=== PATIENT | female | born 1965 | race Hispanic/Latino ===

== ENCOUNTER 2023-11-22 19:15 | Emergency (ER) | payer MEDICAID, SELFPAY ==
[2023-11-22 19:16] VITALS: BP 109/79; PULSE 61; RESP 18; TEMP 36.9; O2SAT 100; BMI 43.0
--- NOTE | 2023-11-22 19:29 | EKG12_ITS ---
Test Reason : DYSRHYTHMIA Blood Pressure : / mmHG Vent. Rate : 058 BPM Atrial Rate : 058 BPM P-R Int : 198 ms QRS Dur : 088 ms QT Int : 422 ms P-R-T Axes : 004 -27 007 degrees QTc Int : 414 ms Sinus bradycardia Otherwise normal ECG Confirmed by MICAH PENNINGTON, CESAR ([id number]), photograph editor DC CARBONE ([id number]) on 11/23/2023 2:46:07 PM Referred By: ELDER Confirmed By:CESAR OBRIEN MD
--- NOTE | 2023-11-22 19:29 | EX.ED.DYSGE1 ---
HPI History of Present Illness Chief Complaint: Syncope Informant: patient Onset/Context/Timing Onset: Today Context: Sudden Onset Timing: Continuous Current Severity: Mild Maximum Severity: Moderate Narrative Narrative: 58-year-old female history of lupus, hypertension and fibromyalgia. Was actually visiting another patient today in emergency department when she had a syncopal episode. Said it came on suddenly she felt dizzy and nauseated. [place] warm all over and then per the nurses she had a syncopal event and was out for a short period of time and unresponsive. She has no known cardiac history. She was told before this may be vasovagal. She denies any recent illness. No headache, chest pain, shortness of breath or abdominal pain. No recent vomiting or diarrhea. Prior similar symptoms: Yes Recent Illness/Hospitalization: No PFSH PFSH Medical History Hypertension Fibromyalgia Home Medications ?Medication ?Instructions ?Recorded ?Last Taken ?Type ergocalciferol (vitamin D2) 1,250 1,250 mcg PO QWEEK 11/22/23 Unknown History mcg (50,000 unit) capsule ibuprofen 800 mg tablet 800 mg PO TID PRN PRN pain 11/22/23 Unknown History losartan 50 mg-hydrochlorothiazide 1 tab PO DAILY 11/22/23 Unknown History 12.5 mg tablet Allergy/AdvReac Type Severity Reaction Status Date / Time tramadol Allergy Intermediate Itching Verified 11/22/23 19:20 Social History Smoking Status: Never smoker ROS ROS ED ROS Narrative No recent illness. Constitutional Constitutional ED: Denies chills or fever(s) Eyes Eyes: Denies blurry vision ENT ENT ED: Denies ear pain Cardiovascular Cardiovascular: Denies chest pain Respiratory/Chest Respiratory/Chest: Denies cough or dyspnea Gastrointestinal Gastrointestinal: Denies abdominal pain, diarrhea, nausea or vomiting Genitourinary Genitourinary ED: Denies dysuria or hematuria Musculoskeletal Musculoskeletal: Denies arthralgias Integumentary Denies abscess Neurologic Neurologic: Denies headache(s) Psychiatric Psychiatric: Denies anxiety or depression Endocrine Endocrinology: Denies cold intolerance Hematologic/Lymphatic Hematologic/Lymphatic: Reports none Allergic/Immunologic Allergic/Immunologic ED: Denies mouth swelling, tongue swelling or urticaria EXAM Physical Exam Narrative Exam Narrative: For 7 female sitting upright in bed. Vital signs stable afebrile. Pulse ox on percent on room air no signs of pox. H EENT exam unremarkable. Pupils round react light. No droop. No trauma. Neck nontender. Lungs are to auscultation bilaterally. Heart regular rhythm no murmur. Chest wall ribs nontender. Abdomen soft nontender. Moving all 4 extremities. She is awake alert. No focal motor deficits. Answering questions following commands. Normal speech. NIH 0. Const Vital Signs: 11/22/23 19:16 11/22/23 19:44 11/22/23 19:57 Temperature 98.5 F Temperature Source Oral Pulse Rate 61 Respiratory Rate 18 Respiratory Effort Normal Non-Labored Respiratory Pattern Normal Blood Pressure 109/79 Blood Pressure Mean 89 Pulse Ox 100 Oxygen Delivery Method Room Air Room Air 11/22/23 20:16 11/22/23 21:00 11/22/23 22:00 Temperature Temperature Source Pulse Rate 65 57 L 56 L Respiratory Rate 19 H 18 18 Respiratory Effort Respiratory Pattern Blood Pressure 133/81 H 122/74 H 126/78 H Blood Pressure Mean 98 90 94 Pulse Ox 100 99 99 Oxygen Delivery Method Room Air Room Air Room Air Positive well nourished and well developed; Negative for obese, cachectic, contractures or unkempt General Appearance ED: well developed and NAD; Negative for unkempt, cachectic, contractures, cyanotic, diaphoretic or pallor Nutritional Appearance: Negative for cachectic or obese HEENT Reports moist mucous membranes; Denies dry mucous membranes Negative for trauma or tenderness Mouth ED: No dry mucous membranes Mouth: No dry mucous membranes Eyes PERRL and EOMs intact bilaterally General Eye ED: Negative for pale conjunctiva or scleral icterus Neck no lymphadenopathy, supple and no JVD General: Negative for tenderness Lymph Lymphatic: Negative for other Chest Wall inspection of chest normal and palpation of chest normal Chest: Negative for other Resp normal respiratory effort and clear to auscultation bilaterally Effort and Inspection: Negative for retractions Auscultation: Negative for rales, rhonchi, wheezes or diminished lung sounds Cardio regular rate, regular rhythm, S1 normal heart sound, S2 normal heart sound and no murmurs Rhythm: Negative for abnormal rhythm GI normal to inspection, nondistended, normoactive bowel sounds, non-tender, non-distended and no masses Inspection: Negative for abdominal distention Auscultation: normoactive bowel sounds Palpation: soft; Negative for tender, guarding, splenomegaly, mass or rebound tenderness present Back/Spine General Back: Negative for CVA tenderness or other Cervical Spine: Negative for cervical spine tenderness Thoracic Spine / Upper Back: Negative for thoracic spinal tenderness or paraspinal muscle tenderness Lumbar Spine / Lower Back: Negative for lumbar spinal tenderness Extremity normal to inspection General Extremety ED: Negative for edema or tenderness General Extremity: Negative for edema Neuro oriented x3 and CN's II-XII intact bilaterally Sensorium / Orientation: alert; Negative for orientation impaired, lethargic or stuporous Motor Exam: strength 5/5 throughout; Negative for general weakness or strength abnormal Psych mental status grossly normal Appearance: Negative for unkempt Attitude: No agitated Mood & Affect: Negative for depressed or tearful Skin no rashes or lesions noted, no wounds and skin turgor normal General Skin Exam: elasticity normal; Negative for jaundice or pallor Lesions: No lesion noted Rashes: No rashes noted Trauma: Negative for abrasion Wounds: Negative for wounds noted MDM MDM MDM Narrative Medical decision making narrative: 58-year-old female with syncopal episode. Exam benign currently. This could be vasovagal it could have been a cardiac event such as a dysrhythmia. She has had no recent illness. She will undergo cardiac workup. Repeat exam at 10:42 PM patient doing well. Feels fine. Sitting upright in bed. We discussed syncope. She has had this happen at least 2 other times. She seen her primary care provider. She is asked to call them again tomorrow to get outpatient cardiac monitoring set up. I offered her admission and she and family did not want her to stay. They understand if she gets worse or passes out again she needs to return. We did discuss some significant abnormal cardiac rhythms that can cause this. Again she did not want to stay. History & Record Review Discussion w/independent historian: Patient Additional record(s) reviewed:: No prior records Lab Data Attestation: I reviewed the patient's lab results. Lab results narrative: CBC normal. White count 8. H&H 14 and 44. Platelets 266. Electrolytes show gap 7. BUN 23 creatinine 0.8. Glucose 173. Troponin is normal at 6. Chest x-ray unremarkable. Labs: Laboratory Results - last 24 hr 11/22/23 19:20 WBC 8.1 RBC 5.04 Hgb 14.2 Hct 44.7 MCV 88.7 MCH 28.2 MCHC 31.8 L RDW Std Deviation 39.3 RDW Coeff of Jaya 12.1 Plt Count 266 MPV 10.3 Immature Gran % (Auto) 0.100 Neut % (Auto) 51.2 Lymph % (Auto) 37.3 Cottle % (Auto) 8.5 Eos % (Auto) 2.4 Baso % (Auto) 0.5 Absolute Neuts (auto) 4.1 Absolute Lymphs (auto) 3.01 Nucleated RBC % 0 Sodium 138 Potassium 3.9 Chloride 109 H Carbon Dioxide 22.0 Anion Gap 7 BUN 23 H Creatinine 0.81 Estim Creat Clear Calc 84.68 Est GFR (MDRD) Af Amer 94 Est GFR (MDRD) Non-Af 77 BUN/Creatinine Ratio 28.4 H Glucose 173 H Calcium 9.6 Troponin I High Sens 6 POC Glucose 144 H Radiography Chest X-Ray - ED: 1 View, Read by ED Physician, Read by Radiologist, Normal, Heart, Lungs, Mediastinum, Bony Structures and No Acute Disease Diagnostic Testing: Clinical Impression(s) from Imaging Studies Chest X-Ray 11/22/23 19:35 IMPRESSION: No radiographic evidence of acute cardiopulmonary disease. Electronically Signed: Rah Nielson MD at 20:03 EDT Reading Location ID and State: [facility] / [place] , Service support , Chest x-ray, portable, single view interpreted by myself and radiologist shows no acute abnormality. Normal cardiac silhouette. Normal lung asif. Rhythm Strip Rhythm Strip: Sinus bradycardia Rate: 58 Ectopy: None EKG Initial EKG: Attestation: I personally reviewed and interpreted this EKG as follows: Interpretation: No Acute Injury Pattern and Sinus Bradycardia Comments: Sinus bradycardia rate of 58. No acute signs of NM or ischemia. Prior: No Prior Discharge Plan Triage Chief Complaint: Syncope ED Provider: Jeremias Mckeon Dx/Rx/DC Orders Clinical Impression: Syncope Prescriptions: No Action ibuprofen 800 mg tablet 800 mg PO TID PRN PRN (Reason: pain) ergocalciferol (vitamin D2) 1,250 mcg (50,000 unit) capsule 1,250 mcg PO QWEEK losartan-hydrochlorothiazide 50-12.5 mg tablet 1 tab PO DAILY Primary Care Provider: Michelle Cadet NP Referrals: Michelle Cadet NP, [employer] M[employer] OPERATOR-C [Primary Care Provider] - 1 Day Activity Restrictions/Additional Instructions: Call and follow-up with your primary care provider tomorrow. They need to set you up with outpatient cardiac monitoring. Do not drive if you do not feel up to it. Return if feeling worse. Print Language: Spanish Disposition Disposition: Home, Self Care
--- NOTE | 2023-11-22 19:35 | RAD_ITS ---
EXAM: XR CHEST, 1 VIEW CLINICAL INDICATION: chest pain TECHNIQUE: Frontal view of the chest. COMPARISON: No relevant prior studies available. FINDINGS: LUNGS AND PLEURAL SPACES: Unremarkable. No consolidation or edema. No pneumothorax. No effusion. HEART: Unremarkable. Cardiac silhouette not enlarged. MEDIASTINUM: Central airways and mediastinal contour are unremarkable. BONES/JOINTS: Unremarkable. No acute fracture. SOFT TISSUES: Unremarkable. RAD/Chest 1 View (Portable) IMPRESSION: No radiographic evidence of acute cardiopulmonary disease. Electronically Signed: Rah Nielson MD at 20:03 EDT ,
[2023-11-22 19:38] LABS: Bedside Glucose 144 mg/dL (74-106)
[2023-11-22 19:59] LABS: Absolute Lymphocyte Count 3.01 X10^3/uL (0.83-4.51); Absolute Neutrophil Count 4.1 X10^3/uL (2.0-7.7); Basophil# 0.04 X10^3/uL; Basophil% 0.5 % (0-1); Eosinophil# 0.19 X10^3/uL; Eosinophils% 2.4 % (0-5); Hematocrit 44.7 % (37-47); Hemoglobin 14.2 g/dL (12.0-15.0); Lymphocyte # 3.01 X10^3/ul (0.83-4.51); Lymphocyte % 37.3 % (19-41); Mean Corp Hgb Conc 31.8 g/dL (32-36); Mean Corpuscular Hgb 28.2 pg (27.0-32.0); Mean Corpuscular Volume 88.7 fL (81-99); Mean Platelet Vol. 10.3 fl (6.2-12.0); Monocyte# 0.69 X10^3/uL; Monocyte% 8.5 % (0-10); NRBC Flagged by Analyzer 0 % (0-5); Neutrophil # 4.14 X10^3/uL (2.7-7.7); Neutrophil % 51.2 % (47-70); Platelet Count 266 K/mm3 (150-450); RBC Distribution Width CV 12.1 % (11.6-14.6); RBC Distribution Width SD 39.3 fl (35.1-43.9); Red Blood Count 5.04 M/mm3 (4.2-5.4); White Blood Count 8.1 K/mm3 (4.4-11.0)
[2023-11-22 20:11] LABS: Anion Gap 7 (5-15); BUN 23 mg/dL (7-18); BUN/Creat Ratio 28.4 RATIO (10-20); Calcium,Total 9.6 mg/dL (8.5-10.1); Chloride 109 mmol/L (98-107); Creatinine, Serum 0.81 mg/dL (0.55-1.02); EST Glomerular Filtration Rate 77 mL/min (>60); Est Glom Filt Rate - Afr Amer 94 mL/min (>60); Estimated Creatinine Clearance 84.68 ml/min; Glucose 173 mg/dL (74-106); Potassium 3.9 mmol/L (3.5-5.1); Sodium Level 138 mmol/L (136-145); Troponin-I HS 6 pg/mL (3.0-54.0)
[2023-11-22 20:16] VITALS: BP 133/81; PULSE 65; RESP 19; O2SAT 100
[2023-11-22 21:00] VITALS: BP 122/74; PULSE 57; RESP 18; O2SAT 99
[2023-11-22 22:00] VITALS: BP 126/78; PULSE 56; RESP 18; O2SAT 99
[2023-11-22 23:00] VITALS: BP 143/83; PULSE 60; RESP 12; TEMP 36.6; O2SAT 100
== END 2023-11-22 23:10 | disposition home or self-care (01) ==
PROVIDERS: Emergency Provider Emergency Medicine; PCP Nurse Practitioner Family; Visit Provider Emergency Medicine
DX: R55 Syncope and collapse (principal); I10 Essential (primary) hypertension; Z79.899 Other long term (current) drug therapy
CPT/HCPCS: 71045; 80048; 82962; 84484; 85025; 93005; 99283; J7030; A4216

== ENCOUNTER 2024-05-31 13:30 | Outpatient (RCR) | payer MEDICAID, SELFPAY ==
--- NOTE | 2024-04-25 13:34 | HP.PTEVAL ---
Patient's Visit Information Visit Information Visit Information: BETTIE RINALDI is a 58 year old F referred to Physical Therapy by AYESHA Perez with a diagnosis of FIBROMAYALGIA. Date of Evaluation: 04/25/24 Physical Therapist: Yung Corcoran, PT, Cert MDT, OCS Visit Plan Frequency: 2x /Week Duration: 4 Weeks Plan: PT INTERVENTIONS AQUATIC THERAPY ROM LUMBAR CERVICAL ,BUE/LE STRENGTHENING ,POSTURAL EX'S AND ENDURANCE EX'S Subjective Subjective: This 58 y/o female presents to physical therapy with fibromyalgia. Patient has had chronic pain 2009 and dx with lupus. Patient had more pain with general activity and walking. Pain in located global neck shoulders back and hip.Patient medication pain ibuprofen 800 mg. Aggravating factors weather and general activity walking/ standing .lifting bending. Alleviating factors heat. Patient ahd inaging of back Patient has difficulty sleeping . Patient has paresthesia /tingling feet. C/O BOOKER ,dizziness, denies nausea . Bowel/bladder -. Coughing/sneezing-. Patient had PT in past. Patient condition affects QOL and function/ADLS . Patient goals to decrease pain . Patient SOCIAL: VOCATION: unemployed Pain Bilateral Neck: Pain Intensity (Out of 10): 8 Pain Intensity Range: 10 Bilateral Back: Pain Intensity (Out of 10): 8 Pain Intensity Range: 10 Bilateral Hip: Pain Intensity (Out of 10): 9 Pain Intensity Range: 10 Comment: walking Objective Objective: POSTURE: mild forward posture NEURO: c/o paresthesia/tingling hands/feet ,reflexes C5-6-7 1/3 ,L3-4,L4-5,L5-S1 1/3 PALAPTION: tender UT/levators ,S/LS AROM: BUE WFL CERVICAL ROM: flexion min loss ,extension mod loss ,rotation/lateral flexion mod loiss MMT BUE: grossly 4-/5 MMT: quads/hams 4-/5 ,hip flexion 4-/5 ,ankle 4/5 LUMBAR ROM: flexion mod loss ,extension min loss ,side glides min loss FLEXABILITY: hamstrings min Special Tests C/S Radiculapathy - Left Upper limb tension test: Negative C/S Radiculapathy - Right Upper limb tension test: Negative C/S Radiculapathy - Left Spurlings: Negative C/S Radiculapathy - Right Spurlings: Negative C/S Radiculapathy - Left Cervical distraction: Negative C/S Radiculapathy - Right Cervical distraction: Negative C/S Radiculapathy - Left Relief test: Negative C/S Radiculapathy - Right Relief test: Negative Sharp Nelly: Negative Vertebral Artery Test: Negative Alar Ligament Test: Negative L/S Slump test left side: Negative L/S Slump test right side: Negative L/S Left Straight Leg Raise: Negative L/S Right Straight Leg Raise: Negative R Hip Scour: Negative R Hip Quadrant - Intraarticular Pathology: Negative L Hip Scour: Negative L Hip Quadrant - Intraarticular Pathology: Negative Balance/Special Test Scores Lower Extremity Functional Score: 24 Goals Goal 1:: Patient to be I with Aquatic therapy Goal Time Frame: 4-6 Weeks Goal 2:: Patient to improve cervical and lumbar ROM for function of recovery housework tasks Goal Time Frame: 4-6 Weeks Goal 3:: Patient to improve LFES score by 5 points to improve QOL and function Goal Time Frame: 4-6 Weeks Goal 4:: Patient to demonstrate decrease pain and improved function with ADLS and housework tasks Goal Time Frame: 4-6 Weeks Rehabilitation Potential Physical Therapy Diagnosis: Patient has had fibromyalgia chronic pain many years affects daily function and housework tasks along with comorbities influences condition thus benefit from skilled PT Rehabilitation Potential: Good Anticipated Interventions Patient/Client Instruction: Educate patient on: Condition and Plan of Care For the Purpose of:: To decrease pain, To improve nutrient delivery to tissue, To increase oxygenation perfusion, To improve muscle performance and motor function, To improve ability to perform ADL's, To increase tolerance to activity/condition/position, To improve ability of physical actions for home/community/work/leisure, To improve gait and locomotor functions, To improve health of tissue, To decrease soft tissue restriction and To increase flexibility/ROM Therapeutic Exercise to Include: Strength training, Endurance training, Balance training, Postural training, Flexibilty training, In an aquatic setting, Active ROM and Dynamic Lumbar Stabilization Comment: BUE/LE For the Purpose of:: To decrease pain, To increase ROM, To improve muscle performance and motor function, To improve ability to perform ADL's, To increase tolerance to activity/condition/position, To improve ability of physical actions for home/community/work/leisure, To improve gait and locomotor functions, To improve health of tissue, To decrease soft tissue restriction and To increase flexibility/ROM Text: Thank you for the opportunity to evaluate your patient. For Medicare and Medicare HMO plans, please review the plan of care and approve it. It will need to be FAXED BACK to us at [phone] for Medicare purposes. For Medicare only, by signing this I certify the plan of care. Please let me know if there are questions or concerns regarding this plan of care. Physician Signature: Date:
--- NOTE | 2024-05-31 14:02 | HP.PTDCSUM ---
Discharge Summary D/C summary: It has been my pleasure to treat BETTIE RINALDI referred by AYESHA Perez, with the diagnosis of FIBROMAYALGIA for a total of 8 visit(s). Discharge Date: 05/31/24 Please see the following information for a summary of their discharge status. Subjective Subjective: Patient seen RA DR kline prescribed medication no medication due to other issues with heart Patient condition is not better Plan to see electronic scale tester Pain Bilateral Neck: Pain Intensity (Out of 10): 7 Bilateral Back: Pain Intensity (Out of 10): 7 Bilateral Hip: Pain Intensity (Out of 10): 0 WHOLE BODY: Pain Intensity (Out of 10): 7 Overall Improvement % Improvement: 20 Objective Objective/Function: POSTURE: mild forward posture NEURO: c/o paresthesia/tingling hands/feet ,reflexes C5-6-7 1/3 ,L3-4,L4-5,L5-S1 1/3 PALAPTION: tender UT/levators ,S/LS AROM: BUE WFL CERVICAL ROM: flexion min loss ,extension mod loss ,rotation/lateral flexion mod loiss MMT BUE: grossly 4-/5 MMT: quads/hams 4-/5 ,hip flexion 4-/5 ,ankle 4/5 LUMBAR ROM: flexion mod loss ,extension min loss ,side glides min loss FLEXABILITY: hamstrings min Goals Goal 1:: Patient to be I with Aquatic therapy Goal Progress: Goal Met Goal 2:: Patient to improve cervical and lumbar ROM for function of recovery housework tasks Goal Progress: Not Progressing Goal 3:: Patient to improve LFES score by 5 points to improve QOL and function Goal Progress: Not Progressing Goal 4:: Patient to demonstrate decrease pain and improved function with ADLS and housework tasks Goal Progress: Not Progressing Plan Plan: RTD D/C Information Discharge Comments: RTD d/c sentence: If there are questions or concerns regarding this patient's physical therapy, please feel free to call me at [phone]. Thank you for the referral of this patient. Sincerely, Yung Corcoran, PT, Cert MDT, OCS Balance/Gait/Functional tests Balance/Special Test Scores Lower Extremity Functional Score: 24 Improvement % Improvement: 20
== END 2024-05-31 19:00 | disposition home or self-care (01) ==
LOC: PT 13:30
PROVIDERS: PCP Nurse Practitioner Family; Referring Provider Nurse Practitioner Family; Visit Provider Nurse Practitioner Family
DX: M79.7 Fibromyalgia (principal)
CPT/HCPCS: 97113; 97162; 97530

== ENCOUNTER 2024-12-25 14:57 | Emergency (ER) | payer SELFPAY ==
[2024-12-25 14:58] VITALS: BP 115/82; PULSE 86; RESP 16; TEMP 36.8; O2SAT 96; BMI 39.7
--- NOTE | 2024-12-25 16:18 | US_ITS ---
EXAM: US Pelvis Transvaginal CLINICAL INDICATION: PELVIC PAIN, POSTMENOPAUSAL BLEEDING LIMITED EXAM, TECHNIQUE: Real-time transvaginal pelvic ultrasound with image documentation. Transvaginal imaging was used for better evaluation of the endometrium and adnexa. COMPARISON: No relevant prior studies available. FINDINGS: UTERUS/CERVIX: Anteverted uterus. No myometrial mass. The uterus measures 9.8 x 5.6 x 4.4 cm. The endometrial stripe measures 1.8 cm in thickness. RIGHT OVARY: Right ovary not visualized. LEFT OVARY: Left ovary not visualized. FREE FLUID: No free fluid. BLADDER: Empty bladder which cannot be evaluated with this probe. US/Transvaginal Non- IMPRESSION: Thickened endometrium in a post menopausal woman. Further evaluation with gyne cology is recommended. Reading Location: [id number]
[2024-12-25 16:57] VITALS: BP 136/88; PULSE 78; O2SAT 100
[2024-12-25 18:00] VITALS: BP 125/82; PULSE 54; RESP 17; O2SAT 96
--- NOTE | 2024-12-25 18:55 | ED.VIS.FEGU ---
HPI HPI - Female History of Present Illness Chief Complaint: Vag Bleeding Detail of Chief Complaint: Post vaginal bleeding Pain Pain: Positive for Pelvic Pain Onset: Today Context: Sudden Onset Timing: Waxes and wanes Quality: Positive for Cramping and Aching Current Severity: Mild Maximum Severity: Mild Worsened by: - (Nothing) Relieved by: - (Nothing) Bleeding Issue: Positive for Vaginal bleeding and Passing clots; Negative for Passing tissue Onset: Today Context: Sudden Onset Timing: Continuous Current Severity: Mild Vaginal Discharge Onset: Weeks (Based on description probably physiologic) Quality: Positive for White and Thin Severity: Light Associated Symptoms Associated Symptoms: Negative for Dysuria, Frequency, Urgency or Hematuria Test: Positive Sexually: Positive for Inactive Narrative Narrative: Patient is a 59-year-old woman. She sees nurse practitioner Laura at the [facility]. She presents because of vaginal bleeding. She states she has not had a menses/vaginal bleed for 5 years. She denies weight gain or weight loss. She denies orthostatic symptoms. She is not on an anticoagulant or antithrombotic. She does have history of hypertension. There is a remote history of endometriosis. Denies history of ovarian cyst or fibroids. She denies history of ectopic . Prior similar symptoms: No Recent Illness/Hospitalization: No PFSH PFSH Medical History Hypertension Fibromyalgia Home Medications ?Medication ?Instructions ?Recorded ?Last Taken ?Type ibuprofen 800 mg tablet 800 mg PO TID PRN PRN pain 11/22/23 Unknown History losartan 50 mg-hydrochlorothiazide 1 tab PO DAILY 11/22/23 Unknown History 12.5 mg tablet Allergy/AdvReac Type Severity Reaction Status Date / Time tramadol Allergy Intermediate Itching Verified 12/25/24 15:00 Surgical History (Updated 12/25/24 @ 15:10 by Ellie Redmond) Hx of breast reduction, elective Hx of cholecystectomy H/O knee surgery H/O tubal ligation Social History household members: children Smoking Status: Never smoker ROS ROS ED Constitutional Constitutional ED: Denies chills, fever(s), subjective or sweats Cardiovascular Cardiovascular: Reports other Details: Denies orthostatic symptoms. ; Denies chest pain or palpitations Respiratory/Chest Respiratory/Chest: Denies dyspnea or dyspnea on exertion Gastrointestinal Gastrointestinal: Denies nausea or vomiting Genitourinary Genitourinary ED: Denies dysuria, hematuria or urinary frequency Hematologic/Lymphatic Hematologic/Lymphatic: Denies easy bleeding or easy bruising EXAM Physical Exam Const Vital Signs: 12/25/24 14:58 12/25/24 16:57 12/25/24 18:00 Temperature 98.2 F Temperature Source Oral Pulse Rate 86 78 54 L Respiratory Rate 16 17 Blood Pressure 115/82 H 136/88 H 125/82 H Blood Pressure Mean 93 104 96 Pulse Ox 96 100 96 Oxygen Delivery Method Room Air Room Air Positive well nourished and well developed Constitutional Narrative: Patient has a BMI of 39.7. General Appearance ED: well developed and NAD HEENT Reports moist mucous membranes Eyes PERRL and EOMs intact bilaterally General Eye ED: Negative for pale conjunctiva Resp normal respiratory effort Cardio regular rate, regular rhythm, S1 normal heart sound, no murmurs and no JVD GI normal to inspection, nondistended, normoactive bowel sounds, soft to palpation, non-tender, non-distended and no masses Narrative: External genitalia is normal. There is scant amount of blood in the vaginal vault. There is minimal blood noted external cervical os. Patient had significant tenderness when I attempted to determine the size of her uterus. This was limited due to body habitus. She also complained of some right adnexal discomfort. Again limited exam due to BMI of 39.7. Extremity normal to inspection and full ROM Neuro oriented x3 and CN's II-XII intact bilaterally Sensorium / Orientation: alert Skin no rashes or lesions noted and no wounds MDM MDM MDM Narrative Medical decision making narrative: Pelvic ultrasound was ordered. The endometrium is thickened. Since patient is established with [facility] Dr. Burger as well was contacted. Patient to call the office tomorrow morning for outpatient office visit for endometrial biopsy. Differential diagnosis is vaginal erosion, vaginal trauma due to use of dildo, cervical polyp, trauma to the cervix, endometrial/vaginal bleeding/uterus. Radiography Diagnostic Testing: Clinical Impression(s) from Imaging Studies Transvaginal US 12/25/24 16:18 IMPRESSION: Thickened endometrium in a post menopausal woman. Further evaluation with gynecology is recommended. [facility] Triage Chief Complaint: Vag Bleeding ED Provider: Cristian Mandel Dx/Rx/DC Orders Clinical Impression: Abnormal vaginal bleeding in postmenopausal patient, Elevated blood pressure reading with diagnosis of hypertension, BMI 39.0-39.9,adult Prescriptions: No Action ibuprofen 800 mg tablet 800 mg PO TID PRN PRN (Reason: pain) losartan-hydrochlorothiazide 50-12.5 mg tablet 1 tab PO DAILY Primary Care Provider: Michelle Cadet NP Referrals: Abbey Reagan DO [Med Staff - Active Staff, Obstetrics-Gynecology (OBGYN)] - As soon as possible Michelle Cadet FRACTIONATING STILL OPERATOR, FRACTIONATING STILL OPERATOR-C [Primary Care Provider, Family Practice] Activity Restrictions/Additional Instructions: Call [facility] department tomorrow morning to be seen later this week for endometrial biopsy. Print Language: Vietnamese Disposition Disposition: Home, Self Care
[2024-12-25 19:24] VITALS: BP 126/80; PULSE 77; RESP 20; TEMP 36.9; O2SAT 100
== END 2024-12-25 19:24 | disposition home or self-care (01) ==
PROVIDERS: Emergency Provider Emergency Medicine; PCP Nurse Practitioner Family; Visit Provider Emergency Medicine
DX: N95.0 Postmenopausal bleeding (principal); I10 Essential (primary) hypertension
CPT/HCPCS: 76830; 99282